=== PATIENT | female | born 1970 ===

== ENCOUNTER 2019-01-07 05:36 | Day surgery (SDC) | payer OTHER ==
[~2019-01-07 05:36] MED LIST: CLONAZEPAM1 M1 PO; LISINOPRIL20 MG PO; OMEPRAZOLE10 MG PO; RYTARY ER 36.21 EACH PO; SYNTHROID112 MCG PO; TRIHEXYPHENIDYL2 MG PO; ZOLOFT50 MG PO; [UNRECOGNIZED DRUG - OTHER] PF
== END 2019-01-07 13:50 | disposition home or self-care (01) ==
LOC: CIR.AMB 05:36
DX: M65.842 Other synovitis and tenosynovitis, left hand (principal)